=== PATIENT | male | born 1965 | race American Indian/Alaskan Native ===

== ENCOUNTER 2019-03-11 06:14 | Emergency (ER) | payer OTHER ==
[2019-03-11 06:27] VITALS: BP 133/82
--- NOTE | 2019-03-11 08:29 | Emergency Department Report ---
ED Headache HPI - General Chief Complaint: Headache Stated Complaint: HEADACHES DUE TO COLD Time Seen by Provider: 03/11/19 08:24 - History of Present Illness Initial Comments: Patient is a 53-year-old -[place] male who's had a cough cold symptoms for approximately a week. Patient states cough is improved however he has continued to have a mid facial pain and pressure. Patient states the pain is a 10 out of 10 is worse when he is lying down at night. He has had subjective fevers and chills. He denies nausea vomiting sore throat, productive cough or diarrhea at this time. Allergies/Adverse Reactions: Allergies No Known Allergies Allergy (Unverified 10/04/14 06:51) Home Medications: Ambulatory Orders Cyclobenzaprine [Flexeril 10mg] 10 mg PO Q8H PRN #21 tablet 10/04/14 Ibuprofen [Motrin 800 MG tab] 800 mg PO Q8H #30 tablet 10/04/14 Amoxicillin/Potassium Clav [Augmentin 875-125 Tablet] 1 each PO BID #14 tablet 03/11/19 Fluticasone [Flonase] 1 spray NS QDAY #1 bottle 03/11/19 predniSONE [Deltasone] 20 mg PO QDAY #5 tab 03/11/19 ED Review of Systems ROS: Stated complaint: HEADACHES DUE TO COLD Other details as noted in HPI Comment: All other systems reviewed and negative ED Past Medical Hx - Past Medical History Previous Medical History?: No - Surgical History Past Surgical History?: Yes Additional Surgical History: Left Knee - Social History Smoking Status: Current Every Day Smoker Substance Use Type: None - Medications Home Medications: Home Medications Medication Instructions Recorded Confirmed Last Taken Type Cyclobenzaprine [Flexeril 10mg] 10 mg PO Q8H PRN #21 tablet 10/04/14 Unknown Rx Ibuprofen [Motrin 800 MG tab] 800 mg PO Q8H #30 tablet 10/04/14 Unknown Rx Amoxicillin/Potassium Clav 1 each PO BID #14 tablet 03/11/19 Unknown Rx [Augmentin 875-125 Tablet] Fluticasone [Flonase] 1 spray NS QDAY #1 bottle 03/11/19 Unknown Rx predniSONE [Deltasone] 20 mg PO QDAY #5 tab 03/11/19 Unknown Rx ED Physical Exam - General Limitations: No Limitations General appearance: alert, in no apparent distress - Head Head exam: Present: atraumatic, normocephalic - Eye Eye exam: Present: normal appearance - ENT ENT exam: Present: mucous membranes moist, other (sinus tenderness at the ethmoidal area) - Neck Neck exam: Present: normal inspection - Respiratory Respiratory exam: Present: normal lung sounds bilaterally. Absent: respiratory distress, wheezes, rales, rhonchi - Cardiovascular Cardiovascular Exam: Present: regular rate, normal rhythm. Absent: systolic murmur, diastolic murmur, rubs, gallop - GI/Abdominal GI/Abdominal exam: Present: soft, normal bowel sounds. Absent: distended, tenderness, guarding, rebound - Rectal Rectal exam: Present: deferred - Extremities Exam Extremities exam: Present: normal inspection - Back Exam Back exam: Present: normal inspection - Neurological Exam Neurological exam: Present: alert, oriented X3 - Psychiatric Psychiatric exam: Present: normal affect, normal mood - Skin Skin exam: Present: warm, dry, intact, normal color. Absent: rash ED Course Vital Signs 03/11/19 06:18 Temperature 98.7 F Pulse Rate 64 Respiratory 18 Rate Blood Pressure 133/82 O2 Sat by Pulse 99 Oximetry ED Medical Decision Making - Medical Decision Making Patient to be treated for acute sinusitis. Patient discharged home. Critical care attestation.: If time is entered above; I have spent that time in minutes in the direct care of this critically ill patient, excluding procedure time. ED Disposition Clinical Impression: Acute sinusitis Qualifiers: Sinusitis location: ethmoidal Recurrence: non-recurrent Qualified Code(s): J01.20 - Acute ethmoidal sinusitis, unspecified Disposition: - TO HOME OR SELFCARE Is pt being admited?: No Does the pt Need Aspirin: No Condition: Stable Instructions: Sinusitis (ED) Referrals: MIRI WALTERS MD [Referring] - 3-5 Days Time of Disposition: 08:29
== END 2019-03-11 08:49 | disposition home or self-care (01) ==
LOC: ED 06:14
DX: J01.20 Acute ethmoidal sinusitis, unspecified (principal); F17.200 Nicotine dependence, unspecified, uncomplicated
CPT/HCPCS: 99282